=== PATIENT | male | born 1940 | race Caucasian/White ===

== ENCOUNTER 2023-08-05 09:19 | Outpatient (AMB) | payer MEDICARE, SELFPAY ==
--- NOTE | 2023-08-05 09:23 | MHC.PC.OV ---
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 Accompanied by: Self / Same As Patient Allergies No Known Allergies Allergy (Verified 08/05/23 09:38) Medication List - Last Reconciled 08/05/23 by Dominick Saini CNP alpha lipoic acid 300 mg PO DAILY aspirin 81 mg PO DAILY atorvastatin 40 mg PO BEDTIME dapagliflozin propanediol (Farxiga) 10 mg PO DAILY folic acid 1 mg PO DAILY metformin 500 mg PO BID rivaroxaban (Xarelto) 2.5 mg PO BID sennosides (senna) 8.6 mg PO DAILY therapeutic multivitamin 1 tab PO DAILY thiamine HCl (vitamin B1) 100 mg PO DAILY Tobacco use date assessed: 08/05/23 Fall risk assessment: 1 Fall in past year Last assessed Fall Risk: 08/05/23 Dental Screening Dental Screen Date: 08/05/23 Did you have a dental visit in the last 12 months?: No Did you have a dental problem in the last 6 months where you did not have access to dental care?: No Was dental information given to patient?: Patient has dentist HPI HPI Comments History of Present Illness Details New patient Prior PCP: Dr. Nilton Betancourt, [place], [place] Last office visit/CPE: About 3-4 years. He states that his current medications have been prescribed by the hospital he was admitted for DVT of right leg about a year ago Acute issue(s): Type 2 diabetes -He is on Farxiga 10mg daily and Metformin 500mg twice daily Reports achy and redness to both feet for the past decades, right worst than left. He notes that he was told by a cardiac nurse that his symptoms are related to impaired nerve in this feet Reports constipation for 2.5 days last week; therefore, he stopped taking taking all of his medications and has been having a bowel movement regularly (once daily) Notes dry skin to both lower legs He states that he has not been evaluated by Podiatry and Ophthalmology in a long time PMHx: Type 2 diabetes, h/o DVT right leg about a year ago SurgHx: History of cataract removal both eyes with insertion of prosthetic lens FHx: None SocHx: Nonsmoker. Drinks 2-3 glasses of wine daily for the past decades . No recreational drugs. [facility] Medical History (Updated 08/05/23 @ 10:20 by Dominick Saini CNP) Diabetes Surgical History (Updated 08/05/23 @ 09:37 by Martha Laurent [facility]) H/O cataract removal with insertion of prosthetic lens Social History Housing: House Patient Tobacco Use Status: Former Tobacco user service: Yes Current occupational status: retired Cognitive needs: No Hearing needs: Yes Vision needs: No Questionnaire PHQ-9 Over the last 2 weeks, how often have you been bothered by any of the following problems? 1. Little interest or pleasure in doing things: not at all 2. Feeling down, depressed, or hopeless: not at all 3. Trouble falling or staying asleep, or sleeping too much: not at all 4. Feeling tired or having little energy: not at all 5. Poor appetite or overeating: not at all 6. Feeling bad about yourself - or that you are a failure or have let yourself or your family down: not at all 7. Trouble concentrating on things, such as reading the newspaper or watching television: not at all 8. Moving or speaking so slowly that other people could have noticed. Or the opposite - being so fidgety or restless that you have been moving around a lot more than usual: not at all 9. Thoughts that you would be better off or of hurting yourself in some way: not at all Total score: 0 Depression Screening Interpretation: Negative Depression Screening Done: Yes 97689 - PHQ-9 Billing: Yes Source: Developed by Drs. Seymour Moise, Gracia Casper, Ghassan Taylor and colleagues, with an educational rolando from [employer]. Thrive Questionnaire Date Thrive assessed: 08/05/23 I am a: Patient What is your living situation today?: I have a steady place to live Within the past 12 months, did the food you bought not last and you didn't have the money to get more?: Never true Within the past 12 months, did you worry whether your food would run out before you got money to buy more?: Never true Do you have trouble paying for medicines?: Yes Do you have trouble getting transportation to medical appointments?: No Do you have trouble paying your heating and electricity bill?: Yes Do you have trouble taking care of your child, family member or friend?: No Do you have trouble with day-to-day activities such as bathing, preparing meals, shopping, managing finances, etc.?: Yes Are you currently unemployed and looking for a job?: No Are you interested in more education?: No Please select the resources that you would like help with: Paying for medicine and Daily support Currently or been in a relationship where the following occur: no concerns reported THRIVE Score: 1 AUDIT C Alcohol Use Questionnaire (AUDIT-C) 1. How often do you have a drink containing alcohol?: 4 or more times a week 2. How many drinks containing alcohol do you have on a typical day when you are drinking?: 1 or 2 3. How often do you have six or more drinks on one occasion?: Never Total Score: 4 BIANCA-7 AMB Questionnaire BIANCA-7 Date BIANCA - 7 assessed: 08/05/23 Feeling nervous, anxious, or on edge: 0 = Not at all Not being able to stop or control worryin = Not at all Worrying too much about different things: 0 = Not at all Trouble relaxin = Not at all Being so restless that it is hard to sit still: 0 = Not at all Becoming easily annoyed or irritable: 0 = Not at all Feeling afraid as if something awful might happen: 0 = Not at all Total BIANCA-7 score (0-4 normal; 5-9 mild; 10-14 moderate; 15-21 severe): 0 Source: Developed by Drs. Seymour Moise, Gracia Casper, Ghassan Taylor and colleagues, with an educational rolando from [employer]. BIANCA-7 Assessment Billing BIANCA-7 Assessment Tool: BIANCA-7 Assessment 02582 Review of Systems Const Details: Const Denies chills, Denies fatigue, Denies fever(s), Denies headache(s) and Denies weakness ENT Denies dizziness and Denies headache(s) Card Denies chest pain, Denies lightheadedness, Denies dyspnea and Denies other (Palpitations) Resp Denies cough, Denies dyspnea, Denies wheezing and Denies other ( shortness of breath) GI Denies abdominal pain, Denies melena, Denies hematochezia, Denies change in bowel habits, Denies dyspepsia and Denies nausea Denies hematuria and Denies dysuria Musc Denies abnormal gait, Denies myalgias, Denies arthralgias, Denies numbness and Denies tingling Skin/Breast Reports as per HPI Neuro Denies abnormal gait, Denies dizziness, Denies headache(s), Denies memory loss, Denies numbness, Denies Sensory deficit (Neuro), Denies tingling and Denies weakness Psych Denies anxiety, Denies depression, Denies memory loss Endo Denies cold intolerance, Denies fatigue, Denies heat intolerance, Denies polydipsia and Denies polyuria Aller/Immun Denies wheezing Physical exam (Primary Care) Vital Signs: Last Vital Signs Temp 97.8 F 08/05/23 09:24 Pulse 83 08/05/23 09:24 Resp 15 08/05/23 09:24 BP 116/70 08/05/23 09:24 Pulse Ox 97 08/05/23 09:24 Oxygen Delivery Method Room Air 08/05/23 09:24 BMI result Body Mass Index 25.0 Tobacco/Smoking Status: Tobacco use Status Tobacco use date assessed 08/05/23 08/05/23 09:40 Patient Tobacco Use Status Former Tobacco user 08/05/23 09:40 PHQ-9: PHQ-9 Score PHQ-9: Total score 0 08/05/23 09:40 Depression Screening Interpretation: Negative Thrive Assessment: Date of Thrive Assessment Date Thrive assessed 08/05/23 08/05/23 09:40 Currently or been in a relationship where the following occur: no concerns reported Const Other: General: no acute distress and well developed Nutritional Appearance: well nourished Orientation/consciousness: patient oriented x3 HENMT Head: Yes normocephalic and Yes atraumatic Eyes General: appearance normal, both eyes and all related structures Pupils: Equal, round and reactive pupils present EOM: EOMs intact bilaterally Resp Effort & Inspection: normal respiratory effort Auscultation: clear to auscultation bilaterally Cardio Rate: regular rate Rhythm: regular rhythm Heart sounds: S1 normal heart sound present, S2 normal heart sound present, no gallops, no murmurs and no rubs Negative pedal and post tibial pulses bilaterally GI Palpation (GI): No Abdominal aortic bruit present, Soft to palpation, nontender, No hepatosplenomegaly present and No Rebound tenderness present Auscultation: normal bowel sounds General: Yes no CVA tenderness Back/Spine/Pelvis Back: no CVA tenderness Cervical Spine: cervical ROM normal and No Cervical spine tenderness Thoracic/Lumbar Spine: thoraco-lumbar ROM normal, No pain with thoraco-lumbar ROM, No thoracic spinal tenderness and No lumbar spinal tenderness Extrem General: Yes normal to inspection, No edema and No calf tenderness Skin General: warm and dry. Normal skin color. Normal skin turgor. Mild redness noted to both feet Lesions: Scabs Rashes: No rashes Trauma: no lacerations or abrasions Wounds: no wounds Nails: normal Neuro General: patient oriented x3, gait normal and no focal neuro deficit Cranial nerves: Yes Equal, round and reactive pupils present Cognition (Neuro): normal cognition Gait exam (Neuro): Normal gait present Sensory Exam: No Sensory deficit (Neuro) Psych Appearance: grossly normal Affect: normal affect Attitude: cooperative Thought process: Normal thought process present Results AMB Hemoglobin A1c AMB Hemoglobin A1c 8.3 % Last Edit by Neha Toure CMA on 08/05/23 09:53 Assessment and Plan Assessment & Plan (1) Type 2 diabetes mellitus: Code(s): E11.9 - Type 2 diabetes mellitus without complications Plan: A1c today is 8.3%, above goal of less than 7.0% Will increase metformin to 1000 mg in the morning and 500 mg at night. Advised to take as prescribed Continue to take Farxiga 10 mg daily ADA diet and routine exercise encouraged. Advised to limit high carbs foods such as bread, pasta, potato, or rice Referred to podiatry and ophthalmology Encouraged to get fasting blood work done before his next visit Follow-up in 1 month for an extended physical exam and labs review Return sooner with symptoms or concerns Verbalized understanding and agreed with treatment plan (2) PVD (peripheral vascular disease): Code(s): I73.9 - Peripheral vascular disease, unspecified Plan: Chronic achiness and redness of both feet Mild redness noted to both feet. Skin is warm, dry, and intact. Negative pedal and post tibial pulses bilaterally Likely PVD. Peripheral neuropathy is also possible Referred to vascular surgery and Podiatry Follow-up with worsening or new symptoms Verbalized understanding and agreed with treatment plan (3) History of DVT (deep vein thrombosis): Code(s): Z86.718 - Personal history of other venous thrombosis and embolism Plan: History of DVT to right lower leg about a year ago Advised to continue to take Xarelto as prescribed Verbalized understanding and agreed with treatment plan (4) Dry skin: Code(s): L85.3 - Xerosis cutis Plan: Dry skin with scabs noted to both lower legs Encouraged to apply ineffective moisturizer such as Cetaphi lotionl once or twice daily Verbalized understanding and agreed with the plan (5) Alcohol use: Code(s): Z78.9 - Other specified health status Plan: He has been drinking 2-3 glasses of wine daily for the past decades Instructed on the health risks and complications of excessive alcohol consumption Advised to avoid or limit alcohol consumption to 7 glasses per week Verbalized understanding and agreed with the treatment plan (6) Laboratory tests ordered as part of a complete physical exam (CPE): Code(s): Z00.00 - Encounter for general adult medical examination without abnormal findings Plan: Fasting labs ordered in preparation of a complete physical exam. Advised to fast for at least 10 hours before getting labs drawn. May drink water Verbalized understanding and agreed with treatment plan. Orders: Orders AMB Hemoglobin A1c Today Z13.9 - Encounter for screening, unspecified TSH reflex Free T4 Today Z00.00 - Encounter for general adult medical examination without abnormal findings UA CC w/rflx Micro + Cult Today Z00.00 - Encounter for general adult medical examination without abnormal findings PSA, Ultra Sensitive Today Z00.00 - Encounter for general adult medical examination without abnormal findings Microalbumin, Random (w Creat) Today E11.9 - Type 2 diabetes mellitus without complications Complete Blood Count Auto Diff Today E11.9 - Type 2 diabetes mellitus without complications, I73.9 - Peripheral vascular disease, unspecified, Z00.00 - Encounter for general adult medical examination without abnormal findings Comprehensive [place]. Panel Fast Today E11.9 - Type 2 diabetes mellitus without complications, I73.9 - Peripheral vascular disease, unspecified, Z00.00 - Encounter for general adult medical examination without abnormal findings Lipid Panel Today E11.9 - Type 2 diabetes mellitus without complications, Z00.00 - Encounter for general adult medical examination without abnormal findings Referrals Podiatry Referral E11.9 - Type 2 diabetes mellitus without complications Vascular Surgery Referral I73.9 - Peripheral vascular disease, unspecified Ophthalmology Referral E11.9 - Type 2 diabetes mellitus without complications Medications: New dapagliflozin propanediol (Farxiga) 10 mg PO DAILY 30 days 30 tabs 3RF metformin Take with Meals daily in the Morning 1,000 mg (2 x 500 mg) PO DAILY 30 days 60 tabs 3RF metformin Take Daily with meal in the Evening 500 mg PO DAILY 30 days 30 tabs 3RF Coding Level of Care Code New Pt Level 4 (37125) Diagnoses Type 2 diabetes mellitus E11.9 PVD (peripheral vascular disease) I73.9 History of DVT (deep vein thrombosis) Z86.718 Dry skin L85.3 Alcohol use Z78.9 Laboratory tests ordered as part of a complete physical exam (CPE) Z00.00 Additional Codes BIANCA-7 Assessment Billing - BIANCA-7 Assessment Tool: BIANCA-7 Assessment 67908 ([id number])
[2023-08-05 09:24] VITALS: BP 116/70; PULSE 83; RESP 15; TEMP 36.6; O2SAT 97; BMI 25.0
== END 2023-08-05 10:17 | disposition home or self-care (01) ==
PROVIDERS: Visit Provider Nurse Practitioner Family
DX: E11.51 Type 2 diabetes mellitus with diabetic peripheral angiopathy without gangrene (principal); I73.9 Peripheral vascular disease, unspecified; Z86.718 Personal history of other venous thrombosis and embolism; L85.3 Xerosis cutis; Z78.9 Other specified health status
CPT/HCPCS: 83036; 99204